=== PATIENT | female | born 1985 | race Caucasian/White ===

== ENCOUNTER 2018-04-29 07:00 | Day surgery (SDC) | payer OTHER ==
[~2018-04-29] VITALS: Ht 152.4 cm; Wt 63.6 kg
[~2018-04-29 07:00] MED LIST: TRINTILLEX PO
[2018-04-29] MEDS ORDERED: LACTATED RINGERS 1,000 ML IV SCH (07:17)
[2018-04-29 07:26] LABS: HCG UR SG 1.027 (1.003-1.030)
[2018-04-29] MEDS ORDERED: EPINEPHRINE 1 MG/ML, 1ML ONE (07:28)
[2018-04-29] MEDS ORDERED: BUPIVACAINE/PF 0.25% ONE (07:28)
[2018-04-29] MEDS ORDERED: ONDANSETRON ODT 8 MG PO ONE (07:30)
[2018-04-29] MEDS ORDERED: OxyconTIN ER 20 MG TAB.ER PO ONE (07:30)
[2018-04-29] MEDS ORDERED: GABAPENTIN 300 MG CAPSULE PO ONE (07:30)
[2018-04-29] MEDS ORDERED: SCOPOLAMINE PATCH, 1.5MG PATCH.TD72 TD ONE (07:30)
[2018-04-29] MEDS ORDERED: ACETAMINOPHEN 500 MG TABLET PO ONE (07:30)
[2018-04-29 07:43] VITALS: BP 116/75
[2018-04-29] MEDS ORDERED: FENTANYL PF 250 MCG/5ML ONE (08:58)
[2018-04-29] MEDS ORDERED: MIDAZOLAM 1 MG/ML, 2ML ONE (08:58)
[2018-04-29] MEDS ORDERED: ROCURONIUM 10MG/ML,5ML ONE (08:59)
[2018-04-29] MEDS ORDERED: PROPOFOL 10 MG/ML, 20ML ONE (08:59)
[2018-04-29] MEDS ORDERED: DEXAMETHASONE 4 MG/ML, 1ML ONE ×2 (09:00)
[2018-04-29] MEDS ORDERED: GLYCOPYRROLATE 0.4 MG/2 ML, 2ML ONE (09:00)
[2018-04-29] MEDS ORDERED: NEOSTIGMINE 1 MG/ML, 10ML ONE (09:00)
[2018-04-29] MEDS ORDERED: CEFOTETAN PMX 2GM/50ML 50 ML ONE (09:21)
[2018-04-29] MEDS ORDERED: ONDANSETRON ODT 8 MG PO PRN (09:30)
[2018-04-29] MEDS ORDERED: MORPHINE SULFATE 4 MG/ML, 1ML IVPush PRN (09:30)
[2018-04-29] MEDS ORDERED: OXYcodone 5 MG/5 ML ORAL.SOL UDC PO PRN (09:30)
[2018-04-29] MEDS ORDERED: LABETALOL 5MG/ML, 20ML IV PRN (09:30)
[2018-04-29] MEDS ORDERED: PROMETHAZINE 25 MG/ML, 1ML IV PRN (09:30)
[2018-04-29] MEDS ORDERED: FENTANYL PF 100 MCG/2ML IV PRN (09:30)
[2018-04-29] MEDS ORDERED: PROMETHAZINE 12.5 MG SUPP PR PRN (09:30)
[2018-04-29] MEDS ORDERED: HYDROmorphone 1 MG/ML, 1ML IV PRN (09:30)
[2018-04-29] MEDS ORDERED: MEPERIDINE/PF 25MG/0.5ML IVPush PRN (09:30)
[2018-04-29] MEDS ORDERED: PROMETHAZINE 25 MG SUPP PR PRN (09:30)
[2018-04-29] MEDS ORDERED: hydrALAzine 20 MG/ML, 1ML IV PRN (09:30)
[2018-04-29] MEDS ORDERED: HYDROcodone/APAP 5/325 TABLET PO PRN (13:00)
== END 2018-04-29 13:25 ==
LOC: OUT 07:00
PROVIDERS: ATTEND Surgery
DX: K80.10 Calculus of gallbladder with chronic cholecystitis without obstruction (principal); F32.9 Major depressive disorder, single episode, unspecified; F41.9 Anxiety disorder, unspecified; Z87.891 Personal history of nicotine dependence; Z72.89 Other problems related to lifestyle
CPT/HCPCS: 81025; 88304; J0171; J1100; J2250; J2704; J2710; J3010; J3490; Q0162; J7120; S0074

== ENCOUNTER 2021-03-23 14:39 | Emergency (ER) | payer MEDICAID, OTHER ==
[~2021-03-23] VITALS: Ht 152.4 cm; Wt 67.2 kg
[2021-03-23 14:48] VITALS: BP 133/104
== END 2021-03-23 15:46 | disposition home or self-care (01) ==
LOC: ED 15:45
DX: F41.9 Anxiety disorder, unspecified (principal); Z76.0 Encounter for issue of repeat prescription
CPT/HCPCS: 99281

== ENCOUNTER 2021-07-27 21:59 | Inpatient (IN) | payer MEDICAID ==
[~2021-07-27] VITALS: Ht 152.4 cm; Wt 62.4 kg
[2021-07-27] MEDS ORDERED: SODIUM CHLORIDE 0.9% 1,000ML IVBOLUS ONE (22:30)
[2021-07-27] MEDS ORDERED: SODIUM CHLORIDE FLUSH 10ML SYR IVF ONE (22:30)
[2021-07-27 22:48] LABS: MEAN CORPUSCULAR HEMOGLOBIN 27.7 pg (27.0-34.8); MEAN CORPUSCULAR HGB CONC 34.6 g/dL (32.4-35.8); MEAN PLATELET VOLUME 7.9 fL (7.4-10.4); PLATELET COUNT 216 x10^3/uL (130-400); RED BLOOD COUNT 4.79 x10^6/uL (3.82-5.3); RED CELL DISTRIBUTION WIDTH 14.9 % (9.6-15.2)
[2021-07-27] MEDS ORDERED: ALBUTEROL/IPRATROPIUM 2.5MG/0.5MG, 3 ML ONE (22:50)
[2021-07-27] MEDS ORDERED: DEXAMETHASONE 4 MG TABLET ONE (22:50)
[2021-07-27 22:54] LABS: ALANINE AMINOTRANSFERASE 47 U/L (12-78); ALBUMIN 2.7 g/dL (3.4-5.0); ANION GAP 9 mmol/L (5-15); CALCIUM 8.4 mg/dL (8.5-10.1); CHLORIDE 98 mmol/L (98-107); CREATININE 0.62 mg/dL (0.55-1.02)
[2021-07-27 22:56] LABS: ALKALINE PHOSPHATASE 182 U/L (45-117); BILIRUBIN,TOTAL 0.3 mg/dL (0.2-1.0); TOTAL PROTEIN 7.3 g/dL (6.4-8.2)
[2021-07-27] MEDS ORDERED: DEXAMETHASONE 4 MG TABLET PO ONE (23:00)
[2021-07-27] MEDS ORDERED: POTASSIUM CHLORIDE 40 MEQ in LACTATED RINGERS 1,000 ML IV SCH (23:00)
[2021-07-27] MEDS ORDERED: ALBUTEROL/IPRATROPIUM 2.5MG/0.5MG, 3 ML NPPB ONE (23:00)
[2021-07-27 23:31] LABS: ANISOCYTOSIS 1+; BAND#(MANUAL) 0.05 x10^3/uL; BANDS%(MANUAL) 2 % (0-7); ECHINOCYTES 1+; LYMPHS% (MANUAL) 37 % (22-44); METAMYELOCYTES# (MANUAL) 0.03 x10^3/uL (0-0); METAMYELOCYTES% (MANUAL) 1 % (0-1); MONOS#(MANUAL) 0.22 x10^3/uL (0.3-2.7); MONOS% (MANUAL) 8 % (2-9); OVALOCYTES 2+; SEGS% (MANUAL) 52 % (42-75)
[2021-07-27 23:32] LABS: CRENATED 1+; MICROCYTOSIS 1+
[2021-07-27 23:33] LABS: <PLATELET ESTIMATE> ADEQUATE; <PLT MORPHOLOGY> NORMAL PLT MORPH
[2021-07-28] MEDS ORDERED: ACETAMINOPHEN 500 MG TABLET PO ONE (00:30)
[2021-07-28] MEDS ORDERED: ACETAMINOPHEN 500 MG TABLET ONE (00:41)
--- NOTE | 2021-07-28 00:49 | NUR ---
PT IVF STARTED AT 250ML/HR AND PT TOLERATED WELL. PT GIVEN TYLENOL PER MD ORDER, SEE EMAR. PT CALM AND COOPERATIVE AND MILD RESP DISTRESS AT THIS TIME. REMAINS ON CR MONITOR, AND SIDERAILS UP X2, AND CALL LIGHT WITHIN REACH.
[2021-07-28] MEDS ORDERED: VORT20TA PO (01:10)
[2021-07-28] MEDS ORDERED: [UNRECOGNIZED DRUG - CODE] BC (01:31)
[2021-07-28] MEDS ORDERED: LABETALOL 5MG/ML, 20ML IVPush PRN (02:30)
[2021-07-28] MEDS ORDERED: IBUPROFEN 600 MG TABLET PO PRN (02:30)
[2021-07-28] MEDS ORDERED: DOXYCYCLINE 100 MG in DEXTROSE 5% 250 ML IV SCH (02:30)
[2021-07-28] MEDS ORDERED: ACETAMINOPHEN 325 MG TABLET PO PRN (02:30)
[2021-07-28 02:32] VITALS: BP 107/73
[2021-07-28] MEDS: POTASSIUM CHLORIDE 20 MEQ TAB.ER.PRT PO SCH ×2 (03:01→09:25)
[2021-07-28] MEDS: CEFTRIAXONE 1,000 MG in DEXTROSE 5% 50 ML IVPB SCH (03:02)
[2021-07-28] MEDS: ENOXAPARIN 30 MG/0.3 ML SQ SCH ×2 (03:02→16:41)
[2021-07-28 03:09] LABS: HCT (SEDRATE) 34.6 % (34.6-47.8)
[2021-07-28 03:23] LABS: C-REACTIVE PROTEIN, QUANT 4.2 mg/dL (0.02-0.49)
[2021-07-28 04:23] LABS: HCG UR SG 1.015 (1.003-1.030)
[2021-07-28 08:46] VITALS: BP 124/89
[2021-07-28] MEDS: ZINC SULFATE 220 MG CAPSULE PO SCH (09:25)
[2021-07-28] MEDS: DEXAMETHASONE 4 MG/ML, 1ML IVPush SCH (09:25)
[2021-07-28] MEDS: ASCORBIC ACID 500 MG TABLET PO SCH ×2 (09:25→16:41)
[2021-07-28] MEDS: CHOLECALCIFEROL 5,000u TAB PO SCH (09:25)
[2021-07-28] MEDS: THIAMINE 100MG TABLET PO SCH (09:26)
[2021-07-28] MEDS: METHADONE 10 MG TABLET PO SCH (09:26)
[2021-07-28 12:17] VITALS: BP 108/74
[2021-07-28 15:09] LABS: MEAN CORPUSCULAR HEMOGLOBIN 27.3 pg (27.0-34.8); MEAN CORPUSCULAR HGB CONC 33.9 g/dL (32.4-35.8); MEAN PLATELET VOLUME 7.5 fL (7.4-10.4); PLATELET COUNT 200 x10^3/uL (130-400); RED BLOOD COUNT 4.45 x10^6/uL (3.82-5.3); RED CELL DISTRIBUTION WIDTH 14.7 % (9.6-15.2)
[2021-07-28 15:20] LABS: ANION GAP 4 mmol/L (5-15); CALCIUM 8.6 mg/dL (8.5-10.1); CHLORIDE 107 mmol/L (98-107)
[2021-07-28 15:24] LABS: CREATININE 0.46 mg/dL (0.55-1.02)
[2021-07-28 15:26] LABS: D-DIMER 0.29 ug/mlFEU (0.00-0.52)
[2021-07-28] MEDS ORDERED: GUAIFENESIN/COD200MG-20MG/10ML LIQUID PO PRN (15:30)
[2021-07-28] MEDS ORDERED: REMDESIVIR 200 MG in SODIUM CHLORIDE 0.9% 250 ML IVPB ONE (16:00)
[2021-07-28 16:33] LABS: ANISOCYTOSIS 1+; BAND#(MANUAL) 0.28 x10^3/uL; BANDS%(MANUAL) 11 % (0-7); LYMPH#(MANUAL) 0.55 x10^3/uL (1-3.4); LYMPHS% (MANUAL) 22 % (22-44); MICROCYTOSIS 1+; MONOS#(MANUAL) 0.18 x10^3/uL (0.3-2.7); MONOS% (MANUAL) 7 % (2-9); SEGS% (MANUAL) 60 % (42-75)
[2021-07-28 16:34] LABS: ECHINOCYTES 1+; OVALOCYTES 2+
[2021-07-28 16:35] LABS: <PLATELET ESTIMATE> ADEQUATE; <PLT MORPHOLOGY> NORMAL PLT MORPH; CRENATED 1+; POLYCHROMASIA 1+
[2021-07-28] MEDS ORDERED: OMNIPAQUE 350 MG/ML, 100ML BOTTLE ONE (17:21)
[2021-07-28 18:47] LABS: MICROSCOPIC AUTO
[2021-07-28 19:03] VITALS: BP 115/78
[2021-07-28] MEDS: MELATONIN 5 MG TABLET PO SCH (21:02)
[2021-07-28] MEDS: DOXYCYCLINE 100MG TABLET PO SCH (21:02)
[2021-07-29 01:33] VITALS: BP 117/77
[2021-07-29] MEDS: CEFTRIAXONE 1,000 MG in DEXTROSE 5% 50 ML IVPB SCH (02:12)
[2021-07-29 05:21] LABS: MEAN CORPUSCULAR HEMOGLOBIN 27.1 pg (27.0-34.8); MEAN CORPUSCULAR HGB CONC 33.5 g/dL (32.4-35.8); MEAN PLATELET VOLUME 7.9 fL (7.4-10.4); PLATELET COUNT 225 x10^3/uL (130-400); RED BLOOD COUNT 4.39 x10^6/uL (3.82-5.3); RED CELL DISTRIBUTION WIDTH 14.9 % (9.6-15.2)
[2021-07-29 05:27] LABS: ALBUMIN 2.3 g/dL (3.4-5.0); ANION GAP 5 mmol/L (5-15); CALCIUM 9.1 mg/dL (8.5-10.1); CHLORIDE 109 mmol/L (98-107)
[2021-07-29 05:35] LABS: ALANINE AMINOTRANSFERASE 33 U/L (12-78); ALKALINE PHOSPHATASE 143 U/L (45-117); BILIRUBIN,TOTAL 0.3 mg/dL (0.2-1.0); CREATININE 0.47 mg/dL (0.55-1.02); TOTAL PROTEIN 6.3 g/dL (6.4-8.2)
[2021-07-29] MEDS: ONDANSETRON 2MG/ML, 2ML IVPush PRN (05:41)
[2021-07-29] MEDS: ENOXAPARIN 30 MG/0.3 ML SQ SCH ×2 (05:41→16:14)
[2021-07-29 06:05] LABS: ANISOCYTOSIS 1+; BAND#(MANUAL) 1.23 x10^3/uL; BANDS%(MANUAL) 15 % (0-7); CRENATED 1+; ECHINOCYTES 1+; LYMPH#(MANUAL) 0.98 x10^3/uL (1-3.4); LYMPHS% (MANUAL) 12 % (22-44); METAMYELOCYTES# (MANUAL) 0.08 x10^3/uL (0-0); METAMYELOCYTES% (MANUAL) 1 % (0-1); MICROCYTOSIS 1+; MONOS#(MANUAL) 0.16 x10^3/uL (0.3-2.7); MONOS% (MANUAL) 2 % (2-9); OVALOCYTES 2+; POLYCHROMASIA 1+; SEG#(MANUAL) 5.74 x10^3/uL (1.8-6.8); SEGS% (MANUAL) 70 % (42-75)
[2021-07-29 06:06] LABS: <PLATELET ESTIMATE> ADEQUATE; <PLT MORPHOLOGY> NORMAL PLT MORPH
[2021-07-29] MEDS ORDERED: POTASSIUM CHLORIDE 20 MEQ TAB.ER.PRT PO ONE (08:00)
[2021-07-29 08:44] VITALS: BP 106/73
[2021-07-29] MEDS ORDERED: METHADONE 5 MG TABLET ONE (08:52)
[2021-07-29] MEDS: METHADONE 10 MG TABLET PO SCH (08:57)
[2021-07-29] MEDS: ASCORBIC ACID 500 MG TABLET PO SCH ×2 (08:59→16:14)
[2021-07-29] MEDS: DEXAMETHASONE 4 MG/ML, 1ML IVPush SCH (09:00)
[2021-07-29] MEDS: THIAMINE 100MG TABLET PO SCH (09:00)
[2021-07-29] MEDS: CHOLECALCIFEROL 5,000u TAB PO SCH (09:00)
[2021-07-29] MEDS: ZINC SULFATE 220 MG CAPSULE PO SCH (09:00)
[2021-07-29] MEDS: DOXYCYCLINE 100MG TABLET PO SCH ×2 (09:00→21:13)
[2021-07-29 12:37] VITALS: BP 102/69
[2021-07-29] MEDS: PANTOPRAZOLE 40MG TABLET PO SCH ×2 (14:51→21:12)
[2021-07-29] MEDS: GUAIFENESIN/COD200MG-20MG/10ML LIQUID PO SCH ×2 (16:14→21:13)
[2021-07-29] MEDS: REMDESIVIR 100 MG in SODIUM CHLORIDE 0.9% 250 ML IVPB SCH (16:14)
[2021-07-29] MEDS: MELATONIN 5 MG TABLET PO SCH (21:00)
[2021-07-29 21:15] VITALS: BP 119/87
[2021-07-30 00:38] VITALS: BP 123/80
[2021-07-30] MEDS: CEFTRIAXONE 1,000 MG in DEXTROSE 5% 50 ML IVPB SCH (02:54)
[2021-07-30] MEDS: GUAIFENESIN/COD200MG-20MG/10ML LIQUID PO SCH ×4 (06:00→20:58)
[2021-07-30] MEDS: ENOXAPARIN 30 MG/0.3 ML SQ SCH ×2 (06:00→16:04)
[2021-07-30 06:48] LABS: ALBUMIN 2.2 g/dL (3.4-5.0); ANION GAP 6 mmol/L (5-15); CALCIUM 8.5 mg/dL (8.5-10.1); CHLORIDE 106 mmol/L (98-107)
[2021-07-30 06:52] LABS: ALANINE AMINOTRANSFERASE 29 U/L (12-78); ALKALINE PHOSPHATASE 127 U/L (45-117); BILIRUBIN,TOTAL 0.3 mg/dL (0.2-1.0); CREATININE 0.41 mg/dL (0.55-1.02); TOTAL PROTEIN 5.9 g/dL (6.4-8.2)
[2021-07-30 08:21] VITALS: BP 109/62
[2021-07-30] MEDS: METHADONE 10 MG TABLET PO SCH (08:53)
[2021-07-30] MEDS: CHOLECALCIFEROL 5,000u TAB PO SCH (08:54)
[2021-07-30] MEDS: THIAMINE 100MG TABLET PO SCH (08:54)
[2021-07-30] MEDS: DOXYCYCLINE 100MG TABLET PO SCH ×2 (08:54→20:58)
[2021-07-30] MEDS: ZINC SULFATE 220 MG CAPSULE PO SCH (08:54)
[2021-07-30] MEDS: ASCORBIC ACID 500 MG TABLET PO SCH ×2 (08:54→16:04)
[2021-07-30] MEDS: PANTOPRAZOLE 40MG TABLET PO SCH ×2 (08:55→20:59)
[2021-07-30] MEDS: DEXAMETHASONE 4 MG/ML, 1ML IVPush SCH (08:55)
[2021-07-30 13:02] VITALS: BP 111/76
[2021-07-30] MEDS: REMDESIVIR 100 MG in SODIUM CHLORIDE 0.9% 250 ML IVPB SCH (16:04)
[2021-07-30 19:24] VITALS: BP 120/79
[2021-07-30] MEDS: MELATONIN 5 MG TABLET PO SCH (20:58)
[2021-07-30] MEDS: ONDANSETRON 2MG/ML, 2ML IVPush PRN (23:48)
[2021-07-31 01:33] VITALS: BP 122/74
[2021-07-31] MEDS: CEFTRIAXONE 1,000 MG in DEXTROSE 5% 50 ML IVPB SCH (03:25)
[2021-07-31] MEDS: GUAIFENESIN/COD200MG-20MG/10ML LIQUID PO SCH ×3 (05:35→16:00)
[2021-07-31] MEDS: ENOXAPARIN 30 MG/0.3 ML SQ SCH (05:35)
[2021-07-31 06:15] LABS: ALBUMIN 2.4 g/dL (3.4-5.0); ANION GAP 6 mmol/L (5-15); CALCIUM 8.5 mg/dL (8.5-10.1); CHLORIDE 104 mmol/L (98-107)
[2021-07-31 06:18] LABS: ALANINE AMINOTRANSFERASE 27 U/L (12-78); ALKALINE PHOSPHATASE 125 U/L (45-117); BILIRUBIN,TOTAL 0.3 mg/dL (0.2-1.0); CREATININE 0.61 mg/dL (0.55-1.02); TOTAL PROTEIN 6.1 g/dL (6.4-8.2)
[2021-07-31 08:30] VITALS: BP 108/80
[2021-07-31] MEDS: METHADONE 10 MG TABLET PO SCH (08:35)
[2021-07-31] MEDS: PANTOPRAZOLE 40MG TABLET PO SCH (08:35)
[2021-07-31] MEDS: ZINC SULFATE 220 MG CAPSULE PO SCH (08:36)
[2021-07-31] MEDS: DOXYCYCLINE 100MG TABLET PO SCH (08:36)
[2021-07-31] MEDS: DEXAMETHASONE 4 MG/ML, 1ML IVPush SCH (08:36)
[2021-07-31] MEDS: ASCORBIC ACID 500 MG TABLET PO SCH ×2 (08:36→16:12)
[2021-07-31] MEDS: CHOLECALCIFEROL 5,000u TAB PO SCH (08:36)
[2021-07-31] MEDS: THIAMINE 100MG TABLET PO SCH (08:39)
[2021-07-31 12:08] VITALS: BP 110/76
[2021-07-31] MEDS ORDERED: CHOL500045 PO (14:05)
[2021-07-31] MEDS ORDERED: THIA100T67 PO (14:05)
[2021-07-31] MEDS ORDERED: ASCO500T9 PO (14:05)
[2021-07-31] MEDS ORDERED: ASPI-191 PO (14:08)
[2021-07-31] MEDS ORDERED: LEVO750T6 PO (14:11)
[2021-07-31] MEDS ORDERED: PRED10TA PO (14:13)
[2021-07-31] MEDS ORDERED: POTASSIUM CHLORIDE 20 MEQ TAB.ER.PRT PO ONE (14:30)
[2021-07-31] MEDS: REMDESIVIR 100 MG in SODIUM CHLORIDE 0.9% 250 ML IVPB SCH (16:00)
== END 2021-07-31 16:30 | disposition home or self-care (01) | DRG 871 ==
LOC: ED 22:35 → EDIP 07-28 00:35 → 4EST 07-28 02:20
PROVIDERS: ADMIT Family Medicine; ATTEND Internal Medicine
PROC: XW033E5 Introduction of Remdesivir Anti-infective into Peripheral Vein, Percutaneous Approach, New Technology Group 5 (ICD-10-PCS; principal; 2021-07-28)
DX: A41.89 Other specified sepsis (principal); J96.01 Acute respiratory failure with hypoxia; J12.82 Pneumonia due to coronavirus disease 2019; U07.1 COVID-19; E87.1 Hypo-osmolality and hyponatremia; F11.20 Opioid dependence, uncomplicated; E86.1 Hypovolemia; E87.6 Hypokalemia; M85.80 Other specified disorders of bone density and structure, unspecified site; Z90.49 Acquired absence of other specified parts of digestive tract; Z98.891 History of uterine scar from previous surgery
CPT/HCPCS: 36415; 71045; 71275; 80048; 80053; 81001; 81025; 82728; 83605; 83615; 83735; 84145; 85025; 85379; 85384; 85651; 86140; 93005; 99285; G0378; J0696; J1100; J1650; J2405; J3480; J7060; Q9967; J7030; J7050; J7120